=== PATIENT | male | born 1975 | race Two or more races ===

== ENCOUNTER 2025-03-21 09:54 | Outpatient (RCR) | payer MEDICAID, SELFPAY ==
--- NOTE | 2025-03-21 11:37 | CTCCONSULT_ITS ---
[facility] [address], [place] [address] Consultation Note Date: 03/21/2025 MR#: [id number] Name: GALLITO MARSHALL : 1975 Dx: C81.70 Hodgkin's lymphoma. Attending physician. [facility] Referring physician. Saeed No MD History of Present Illness: Patient is a 49-year-old gentleman during recent admission for high temp and blood pressure noted on CT scan to have large lymph gland to the left axilla. Biopsy revealed large atypical B cells compatible with classical Hodgkin lymphoma. Has had greater than 10% weight loss and chills night sweats B symptoms CT scan abdomen pelvis available for my review performed 01/03/2025 revealed extensive retroperitoneal lymphadenopathy throughout abdomen and pelvis. Bone marrow biopsy 02/01/2025 reportedly was normal. Patient being followed by medical oncologist is planning chemo starting with port placement and PET scan which are pending. Referred for radiation oncology consultation. Past Medical History: Hypertension diabetes HIV positive longtime smoker social drinker Meds. Amlodipine carvedilol Budeprion furosemide gabapentin hydroxyzine ibuprofen Jardiance valacyclovir Bactrim cephalexin prednisone Social History: Lives in a alf in [place], HIV positive longtime smoker social drinker Review of Systems: Has lost significant weight over the past year along with chills fever. Recently discharged from hospital. Being followed by [facility] as well as medical oncologist Dr. No Physical Exam: General: adequate nourished appearing gentleman in no acute distress HEENT: Atraumatic no cephalic extraocular intact no oral lesions no cervical or supraclavicular adenopathy CV axillary adenopathy noted right greater than left chest clear to auscultation heart regular rate and rhythm ABD: soft no organomegaly or tenderness EXT: no cyanosis clubbing or edema Assessment:1. Patient with stage IIIb classical Hodgkin's lymphoma. 2. Spoke with medical oncologist Dr. No who is planning chemo following completion of PET scan and port placement. 3. I gave patient 2-month follow-up as his treatments are proceeding and at some point radiation consolidation may be helpful. 4. Thank you very much for allowing me to evaluate this patient. Cc: [facility] Saeed No MD Electronically signed by: Paxton Harley MD, DABR 03/21/2025 11:35 AM
== END 2025-04-08 23:59 | disposition home or self-care (01) ==
LOC: SCTC 09:54
PROVIDERS: PCP Internal Medicine Hematology & Oncology; Referring Provider Internal Medicine Hematology & Oncology; Visit Provider Radiology Therapeutic Radiology
DX: C81.74 Other Hodgkin lymphoma, lymph nodes of axilla and upper limb (principal)
CPT/HCPCS: 99213; G0463

== ENCOUNTER 2025-05-22 13:40 | Outpatient (RCR) | payer MEDICAID, SELFPAY ==
--- NOTE | 2025-05-22 15:02 | CTCFLWUP_ITS ---
[facility] [address] [place], [place] [address] Follow-up note Date: 05/22/2025 MR#: [id number] Name: GALLITO MARSHALL : 1975 Account #: ?? Patient with history of stage IIIb classic Hodgkin's lymphoma. Has been receiving chemo for his Hodgkin's lymphoma through his port. Unfortunately this became infected and had to be removed recently and was placed on antibiotics. Patient has had GI symptoms with loose bowels for a week. As I see him today patient appears tired but generally well. Lungs are clear no adenopathy palpable in the supra Clav region. Patient reportedly is scheduled for PET scan and this will guide for further treatments. Unclear whether another port will be placed versus getting peripheral IV chemotherapy. Told patient that radiation may be recommended if he does not have complete response to chemotherapy. I will see him back in 6 months or sooner if needed for possible adjuvant radiation therapy. Electronically signed by: Paxton Harley MD, GREGORIOR 05/22/2025 2:40 PM
== END 2025-06-08 23:59 | disposition home or self-care (01) ==
LOC: SCTC 13:40
PROVIDERS: PCP Physician Assistant; Referring Provider Internal Medicine Hematology & Oncology; Visit Provider Radiology Therapeutic Radiology
DX: C81.74 Other Hodgkin lymphoma, lymph nodes of axilla and upper limb (principal)
CPT/HCPCS: 99212; G0463